=== PATIENT | male | born 1970 | race Caucasian/White ===

== ENCOUNTER 2022-08-07 08:45 | Observation (INO) | payer BC ==
--- NOTE | 2022-08-07 09:35 | RAD REPORT ---
EXAM DESCRIPTION: CT - Abdomen Pelvis Wo Contrast - 08/07/2022 9:13 am CLINICAL HISTORY: Abdominal pain. DISTENTION COMPARISON: No comparisons TECHNIQUE: CT imaging of the abdomen and pelvis was performed without contrast. Solid organ, bowel a nd vascular assessment is limited due to lack of IV and oral contrast. All CT scans are performed using dose optimization technique as appropriate and may include automated exposure control or mA/KV adjustment according to patient size. FINDINGS: Trace pleural fluid is present bilaterally. The liver, spleen, pancreas, adrenal glands and kidneys are within normal limits for a limited non-co ntrast examination. No bowel obstruction, free air, free fluid or abscess. Mild sigmoid diverticulosis coli without diver ticulitis. The appendix is normal. The osseous structures are within normal limits. IMPRESSION: No acute intra-abdominal or pelvic findings. A limited non-contrast examination was performed as detailed.
[2022-08-07] MEDS ORDERED: NITROGLYCERIN 1 GM PKT TD ONE (09:37)
[2022-08-07] MEDS ORDERED: FUROSEMIDE 40 MG/4 ML VIAL ONE (09:37)
[2022-08-07 09:57] LABS: Lymphocytes % 24.5 % (15.3-44.8); MCV 85.4 fL (80-100); RBC Red Blood Cell Count 5.04 M/uL (4.33-5.43)
--- NOTE | 2022-08-07 10:08 | RAD REPORT ---
EXAM DESCRIPTION: RAD - Chest Single View - 08/07/2022 9:18 am CLINICAL HISTORY: DYSPNEA Chest pain. COMPARISON: Head Brain Wo Cont dated 11/22/2020bdomen Pelvis W Contrast dated 08/07/2022; Head C Spi ne Mpr Wo Con dated 08/07/2022No comparisons FINDINGS: Portable technique limits examination quality. Moderate pulmonary edema is suspected. The heart is moderately enlarged. No displaced fractures. IMPRESSION: Moderate CHF versus volume overload.
[2022-08-07 10:17] LABS: Albumin 3.5 g/dL (3.4-5.0); Bilirubin Direct 0.4 mg/dL (0-0.2); Bilirubin Indirect, Calculated 0.7 mg/dL (0.2-0.8); Bilirubin Total 1.1 mg/dL (0.2-1.0); Magnesium 1.9 mg/dL (1.6-2.4); Protein, Total 6.7 g/dL (6.4-8.2); Troponin High Sensitivity 21.4 pg/mL (<58.9)
--- NOTE | 2022-08-07 11:16 | ER ---
Nurse's Notes [facility] Name: Issac Peace Age: 51 yrs Sex: Male : 1970 Arrival Date: 08/07/2022 Time: 08:45 Bed 19 Private MD: Diagnosis: Pulmonary edema;Essential (primary) hypertension Presentation: 08/07 08:55 Chief complaint: Patient states: SOB \T\ ABD distention X 3 days. Last BM this morning. ld1 Denies n/v/d. Coronavirus screen: At this time, the client does not indicate any symptoms associated with coronavirus-19. Ebola Screen: No symptoms or risks identified at this time. Initial Sepsis Screen: Does the patient meet any 2 criteria? No. Patient's initial sepsis screen is negative. Does the patient have a suspected source of infection? No. Patient's initial sepsis screen is negative. Risk Assessment: Do you want to hurt yourself or someone else? Patient reports no desire to harm self or others. Onset of symptoms was August 07, 2022 at 08:56. 08:55 Method Of Arrival: Ambulatory ld1 08:55 Acuity: HILARY 3 ld1 Triage Assessment: 08:56 General: Appears in no apparent distress. comfortable, Behavior is calm, cooperative, ld1 appropriate for age. Pain: Complains of pain in abdomen Pain does not radiate. Pain currently is 4 out of 10 on a pain scale. Quality of pain is described as heavy, throbbing, Pain began 2-3 days ago. Is continuous. EENT: No signs and/or symptoms were reported regarding the EENT system. Neuro: Level of Consciousness is awake, alert, obeys commands, Oriented to person, place, time, situation. Cardiovascular: Capillary refill < 3 seconds Patient's skin is warm and dry. Respiratory: Reports shortness of breath at rest on exertion Airway is patent Respiratory effort is even, unlabored, Onset: The symptoms/episode began/occurred yesterday, the patient has mild shortness of breath. GI: Abdomen is round distended, Reports bloating. : No signs and/or symptoms were reported regarding the genitourinary system. Derm: No signs and/or symptoms reported regarding the dermatologic system. Musculoskeletal: No signs and/or symptoms reported regarding the musculoskeletal system. Historical: - Allergies: 08:56 No Known Allergies; ld1 - PMHx: 08:56 Hypertensive disorder; ld1 - PSHx: 08:56 None; ld1 - Immunization history:: Adult Immunizations up to date, Client reports receiving the 2nd dose of the Covid vaccine. - Social history:: Smoking status: Patient denies any tobacco usage or history of. Patient/guardian denies using alcohol. - Family history:: not pertinent. Screenin:53 [facility] ED Fall Risk Assessment (Adult) History of falling in the last 3 months, db including since admission No falls in past 3 months (0 pts) Confusion or Disorientation No (0 pts) Intoxicated or Sedated No (0 pts) Impaired Gait No (0 pts) Mobility Assist Device Used No (0 pt) Altered Elimination No (0 pt) Score/Fall Risk Level 0 - 2 = Low Risk Oriented to surroundings, Maintained a safe environment. Abuse screen: Denies threats or abuse. Denies injuries from another. Nutritional screening: No deficits noted. Tuberculosis screening: No symptoms or risk factors identified. Assessment: 08:52 Reassessment: Patient appears in no apparent distress at this time. Patient and/or db family updated on plan of care and expected duration. Pain level reassessed. Patient is alert, oriented x 3, equal unlabored respirations, skin warm/dry/pink. patient ambulatory to room. In NAD. General: Appears in no apparent distress. comfortable, Behavior is calm, cooperative. Neuro: Level of Consciousness is awake, alert, obeys commands, Oriented to person, place, time, situation, Speech is normal. 09:14 Reassessment: patient is in CT. db 12:57 Reassessment: patient ambulatory to restroom. db 12:59 Reassessment: Patient appears in no apparent distress at this time. Patient and/or db family updated on plan of care and expected duration. Pain level reassessed. Patient is alert, oriented x 3, equal unlabored respirations, skin warm/dry/pink. Cardiovascular: Rhythm is regular. Respiratory: Airway is patent Respiratory effort is even, unlabored, Respiratory pattern is regular, symmetrical, Breath sounds are clear. 22:06 Reassessment: took patient to room 220 by wheel chair. report was given to RANGEL Silva. ha1 Vital Signs: 08:55 BP 196 / 140; Pulse 96; Resp 20; Temp 98.4(TE); Pulse Ox 99% on R/A; Weight 108.86 kg; ld1 Height 5 ft. 7 in. ; Pain 4/10; 09:00 BP 175 / 119; Pulse 95; Resp 18; Pulse Ox 99% ; db 09:30 BP 146 / 111; Pulse 86; Resp 16; Pulse Ox 98% on R/A; db 10:30 BP 150 / 109; Pulse 83; Resp 18; Pulse Ox 97% on R/A; db 11:30 BP 139 / 100; Pulse 72; Resp 18; Pulse Ox 97% ; db 12:30 BP 145 / 106; Pulse 80; Resp 18; Pulse Ox 98% on R/A; db 13:30 BP 146 / 92; Pulse 72; Resp 18; Pulse Ox 98% ; db 14:00 BP 137 / 99; Pulse 70; Resp 18; Pulse Ox 97% ; db 08:55 Body Mass Index 37.59 (108.86 kg, 170.18 cm) ld1 08:55 Pain Scale: Adult ld1 Vitals: 09:00 Cardiac Rhythm Assessment Sinus rhythm. db ED Course: 08:46 Patient arrived in ED. am2 08:51 Francisca Cunha, RN is Primary Nurse. db 08:52 Wally Cee MD is Attending Physician. rt 08:56 Triage completed. ld1 08:56 Arm band placed on right wrist. ld1 09:15 CT Abd/Pelvis - Without Contrast In Process Unspecified. EDMS 09:19 XRAY Chest (1 view) In Process Unspecified. EDMS 09:43 Inserted saline lock: 20 gauge in right antecubital area, using aseptic technique. db 11:15 Hakeem Castellanos MD is Hospitalizing Provider. rt 12:48 Abdomen Exam Complete In Process Unspecified. EDMS 12:57 Patient has correct armband on for positive identification. Placed in gown. Bed in low db position. Call light in reach. Side rails up X 1. Client placed on continuous cardiac and pulse oximetry monitoring. NIBP monitoring applied. Warm blanket given. 17:03 No provider procedures requiring assistance completed. Patient admitted, IV remains in db place. 20:57 Primary Nurse role handed off by Francisca Cunha, RN rv1 21:03 Ananya Peguero RN is Primary Nurse. ha1 Administered Medications: 09:38 Drug: Nitroglycerin Transdermal Ointment 2 % 1 inches Route: Transdermal; Site: db anterior chest wall; 09:44 Drug: Furosemide IVP 40 mg Route: IVP; Site: right antecubital; db Medication: 17:03 VIS not applicable for this client. db Output: 12:57 Urine: 1800ml (Voided); Total: 1800ml. db Outcome: 11:16 Decision to Hospitalize by Provider. rt 14:30 Admitted to ER Hold. Please see [facility] for further documentation. db 14:30 Condition: stable 14:30 Instructed on the need for admit. 22:07 Patient left the ED. ha1 Signatures: Dispatcher [employer] EDMS Deandra Gomez am2 Parisa Landaverde RN RN ld1 Ananya Peguero RN RN ha1 Francisca Cunha RN RN db Wally Cee MD MD rt Shea Johnson 1
--- NOTE | 2022-08-07 11:16 | EDPHYS ---
Physician Documentation [facility] Name: Issac Peace Age: 51 yrs Sex: Male : 1970 Arrival Date: 08/07/2022 Time: 08:45 Bed 19 Private MD: ED Physician Wally Cee HPI: 08/07 11:32 This 51 yrs old Male presents to ER via Ambulatory with complaints of Shortness Of rt Breath, Abdominal Distention. 11:32 Patient with history of hypertension presents to the ED with shortness of breath, rt orthopnea, BLEVINS for about 3 days now. The patient states that he feels weak and short of breath when he walks. Also reports abdominal distention. He denies chest pain, acute complaints at this time. Symptoms are moderate in severity, no other aggravating or alleviating factors.. Historical: - Allergies: 08:56 No Known Allergies; ld1 - PMHx: 08:56 Hypertensive disorder; ld1 - PSHx: 08:56 None; ld1 - Immunization history:: Adult Immunizations up to date, Client reports receiving the 2nd dose of the Covid vaccine. - Social history:: Smoking status: Patient denies any tobacco usage or history of. Patient/guardian denies using alcohol. - Family history:: not pertinent. ROS: 11:32 Constitutional: Negative for fever, chills, and weight loss, Cardiovascular: Negative rt for chest pain, palpitations, and edema, MS/Extremity: Negative for injury and deformity, Skin: Negative for injury, rash, and discoloration, Neuro: Negative for headache, weakness, numbness, tingling, and seizure, Psych: Negative for depression, anxiety, suicide ideation, homicidal ideation, and hallucinations. 11:32 Respiratory: Positive for dyspnea on exertion, shortness of breath. Exam: 11:32 Constitutional: This is a well developed, well nourished patient who is awake, alert, rt and in no acute distress. Head/Face: Normocephalic, atraumatic. Chest/axilla: Normal chest wall appearance and motion. Nontender with no deformity. No lesions are appreciated. Cardiovascular: Regular rate and rhythm with a normal S1 and S2. No gallops, murmurs, or rubs. Normal PMI, no JVD. No pulse deficits. Skin: Warm, dry with normal turgor. Normal color with no rashes, no lesions, and no evidence of cellulitis. MS/ Extremity: Pulses equal, no cyanosis. Neurovascular intact. Full, normal range of motion. Neuro: Awake and alert, GCS 15, oriented to person, place, time, and situation. Cranial nerves II-XII grossly intact. Motor strength 5/5 in all extremities. Sensory grossly intact. Cerebellar exam normal. Normal gait. Psych: Awake, alert, with orientation to person, place and time. Behavior, mood, and affect are within normal limits. 11:32 ECG was reviewed by the Attending Physician. 11:32 Respiratory: Bibasilar crackles. 11:32 Abdomen/GI: Mild abdominal distention with no tenderness, guarding, rebound. Vital Signs: 08:55 BP 196 / 140; Pulse 96; Resp 20; Temp 98.4(TE); Pulse Ox 99% on R/A; Weight 108.86 kg; ld1 Height 5 ft. 7 in. ; Pain 4/10; 09:00 BP 175 / 119; Pulse 95; Resp 18; Pulse Ox 99% ; db 09:30 BP 146 / 111; Pulse 86; Resp 16; Pulse Ox 98% on R/A; db 10:30 BP 150 / 109; Pulse 83; Resp 18; Pulse Ox 97% on R/A; db 11:30 BP 139 / 100; Pulse 72; Resp 18; Pulse Ox 97% ; db 12:30 BP 145 / 106; Pulse 80; Resp 18; Pulse Ox 98% on R/A; db 13:30 BP 146 / 92; Pulse 72; Resp 18; Pulse Ox 98% ; db 14:00 BP 137 / 99; Pulse 70; Resp 18; Pulse Ox 97% ; db 08:55 Body Mass Index 37.59 (108.86 kg, 170.18 cm) ld1 08:55 Pain Scale: Adult ld1 MDM: 08:53 Patient medically screened. rt 11:32 Differential diagnosis: CHF exacerbation, Chronic Obstructive Pulmonary Disease rt Myocardial Infarction pneumonia, Pneumothorax pulmonary edema, Pulmonary Embolism. Data reviewed: vital signs, nurses notes, lab test result(s), EKG, radiologic studies. Consideration of Admission/Observation Patient was admitted/placed on observation. Management of patient was discussed with the following: Hospitalist: Agrees to admit. Independent interpretation of the following test(s) in the Emergency Department X-Ray: My interpretation is Pulmonary edema with cardiomegaly seen on interpretation of the x-ray images. Test considered but Not performed: CT: Low suspicion for PE, CT angiogram not indicated. Counseling: I had a detailed discussion with the patient and/or guardian regarding: the historical points, exam findings, and any diagnostic results supporting the discharge/admit diagnosis, lab results, radiology results, the need for further work-up and treatment in the hospital. 08/07 09:04 Order name: Basic Metabolic Panel; Complete Time: 10:18 rt 08/07 09:04 Order name: CBC with Diff; Complete Time: 10:16 rt 08/07 09:04 Order name: LFT's; Complete Time: 10:18 rt 08/07 09:04 Order name: Magnesium; Complete Time: 10:18 rt 08/07 09:04 Order name: NT PRO-BNP; Complete Time: 10:18 rt 08/07 09:04 Order name: Troponin HS; Complete Time: 10:18 rt 08/07 12:04 Order name: CBC with Automated Diff EDMS 08/07 12:04 Order name: Comprehensive Metabolic Panel EDMS 08/07 12:08 Order name: Lipid Profile EDMS 08/07 14:15 Order name: CBC Smear Scan EDMS 08/07 09:04 Order name: XRAY Chest (1 view); Complete Time: 10:16 rt 08/07 09:04 Order name: CT Abd/Pelvis - Without Contrast; Complete Time: 10:16 rt 08/07 12:06 Order name: Echo with Doppler EDMS 08/07 12:10 Order name: Abdomen Exam Complete EDMS 08/07 09:04 Order name: EKG; Complete Time: 09:05 rt 08/07 12:04 Order name: CONS Physician Consult EDMS 08/07 12:04 Order name: Heart Healthy EDMS 08/07 09:04 Order name: Cardiac monitoring; Complete Time: 09:35 rt 08/07 09:04 Order name: EKG - Nurse/Tech; Complete Time: 09:35 rt 08/07 09:04 Order name: IV Saline Lock; Complete Time: 09:35 rt 08/07 09:04 Order name: Labs collected and sent; Complete Time: 09:54 rt 08/07 09:04 Order name: O2 Per Protocol; Complete Time: 09:35 rt 08/07 09:04 Order name: O2 Sat Monitoring; Complete Time: :35 rt EC:32 Rate is 98 beats/min. Rhythm is regular, Normal Sinus Rhythm with No ectopy. Left axis rt deviation noted. WV interval is normal. QRS interval is normal. QT interval is normal. No Q waves. Clinical impression: LVH present with nonspecific T wave changes. Administered Medications: 09:38 Drug: Nitroglycerin Transdermal Ointment 2 % 1 inches Route: Transdermal; Site: db anterior chest wall; 09:44 Drug: Furosemide IVP 40 mg Route: IVP; Site: right antecubital; db Disposition Summary: 08/07/22 11:16 Hospitalization Ordered Hospitalization Status: Observation rt Provider: Hakeem Castellanos rt Condition: Stable rt Problem: new rt Symptoms: have improved rt Bed/Room Type: Standard rt Location: Telemetry/MedSurg (observation)(08/07/22 20:18) cg Room Assignment: 220(08/07/22 20:18) cg Diagnosis - Pulmonary edema rt - Essential (primary) hypertension rt Forms: - Medication Reconciliation Form rt - SBAR form rt Signatures: Dispatcher [employer] EDMarisabel Parrish RN RN ss Garcia, Cindy, RN RN cg Parisa Landaverde RN RN ld1 Francisca Cunha RN RN db Wally Cee MD MD rt Corrections: (The following items were deleted from the chart) 19:05 11:16 Telemetry/MedSurg (observation) rt ss 19:05 11:16 rt ss 20:18 19:05 [facility] ER HOLD ss cg 20:18 19:05 ERHOLD- ss cg
--- NOTE | 2022-08-07 11:50 | P.HP ---
Certification for Inpatient Patient admitted to: Observation With expected LOS: <2 Midnights Patient will require the following post-hospital care: None Practitioner: I am a practitioner with admitting privileges, knowledge of patient current condition, hospital course, and medical plan of care. Services: Services provided to patient in accordance with Admission requirements found in Title 42 Section 412.3 of the Code of Federal Regulations Patient History Date of Service: 08/07/22 Reason for admission: Shortness of breath abdominal distention History of Present Illness: Patient is 51 years of age admitted to the hospital complaining of belly feeling tight shortness of breath the past couple of days denies any lower extremity edema history of hypertension former smoker quit 2-1/2 years ago no prior history of coronary artery disease no pulmonary disorders denies any fever or chills - Past Medical/Surgical History -: Hypertension Past Surgical History: Reviewed- Non-Contributory - Social History Smoking Status: Former smoker Review of Systems Respiratory: Shortness of Breath Physical Examination - Vital Signs Temperature: 98.4 F Blood Pressure: 196/140 Pulse: 96 Respirations: 20 Pulse Ox (%): 99 - Physical Exam General: Alert, In no apparent distress, Cachectic Respiratory: Clear to auscultation bilaterally Cardiovascular: No edema, Regular rate/rhythm, Normal S1 S2 Gastrointestinal: Normal bowel sounds, Soft and benign Musculoskeletal: No clubbing, No swelling Neurological: Normal gait, Normal speech, Normal strength at 5/5 x4 extr Lymphatics: No axilla or inguinal lymphadenopathy - Studies Laboratory Data (last 24 hrs) 08/07/22 09:43: WBC 8.00, Hgb 14.4, Hct 43.0, Plt Count 163 08/07/22 09:43: Sodium 138, Potassium 4.0, BUN 14, Creatinine 1.05, Glucose 129 H, Magnesium 1.9, Total Bilirubin 1.1 H, AST 40 H, ALT 125 H, Alkaline Phosphatase 103 Assessment and Plan - Problems (Diagnosis) (1) CHF (congestive heart failure) Current Visit: Yes Status: Acute Plan: Patient is 51 years of age with a history of uncontrolled hypertension he does not have a primary care physician currently takes carvedilol former smoker heavy smoker quit 2-1/2 years ago admitted with acute shortness of breath for the past 2 to 3 days x-ray shows cardiomegaly patient's BNP is elevated FTs are also elevated to the hospital controlled blood pressure diuresis echocardiogram Qualifiers: Heart failure chronicity: unspecified (2) Abnormal LFTs Current Visit: Yes Status: Acute Plan: I suspect is from his liver congestion secondary to CHF continue to monitor have fatty liver - Advance Directives Does patient have a Living Will: No Does patient have a Durable POA for Healthcare: No
[2022-08-07] MEDS ORDERED: HYDRALAZINE HCL 20 MG/ML VIAL IV PRN (12:06)
[2022-08-07 13:35] LABS: Absolute Lymphocytes (CBC) 2.3 K/uL (0.7-4.9); Hematocrit 45.6 % (39.6-49.0); Lymphocytes % 25.4 % (15.3-44.8); MCV 85.6 fL (80-100); MPV 11.2 fL (7.6-11.3); RBC Red Blood Cell Count 5.33 M/uL (4.33-5.43)
[2022-08-07 13:54] LABS: Albumin 4.1 g/dL (3.4-5.0); Bilirubin Total 1.6 mg/dL (0.2-1.0); Potassium 3.6 mEq/L (3.5-5.1); Protein, Total 7.6 g/dL (6.4-8.2)
[2022-08-07] MEDS: hydroCHLOROthiazide 12.5 MG CAP PO SCH (14:00)
[2022-08-07] MEDS: lisinopriL 10 MG TAB PO SCH ×2 (14:00)
[2022-08-07 14:15] LABS: Blood Morphology Comment NOT SEEN (NOT SEEN); Platelet Estimate ADEQ; Platelets, Giant PRESENT; White Blood Cell Scan OK (OK)
--- NOTE | 2022-08-07 14:23 | RAD REPORT ---
EXAM DESCRIPTION: US - Abdomen Exam Complete - 08/07/2022 1:18 pm CLINICAL HISTORY: Abnormal LFTs abdominal distention COMPARISON: August 07, 2022 CT FINDINGS: The liver has an increased echotexture. Liver is mildly enlarged A gallstone is not seen. The gallbladder wall is not thickened. The biliary tree is normal caliber. The pancreas is normal in size and echotexture The right kidney measures 9 centimeters with a normal echotexture. The left kidney measures 11 centimeters with a normal echotexture. The spleen measures 12 centimeters. Abdominal aorta/IVC do not demonstrate a significant abnormality IMPRESSION: Mild hepatomegaly Mild increased hepatic echotexture may indicate mild fatty infiltration
[2022-08-07 14:54] VITALS: BMI 37.5
[2022-08-07] MEDS ORDERED: lisinopriL 10 MG TAB ONE (15:12)
[2022-08-07] MEDS: FUROSEMIDE 20 MG/ 2ML VIAL IV SCH (22:18)
--- NOTE | 2022-08-08 07:08 | P.PN ---
Date of Service: 08/08/22 Subjective: feeling better slight shortness of breath on exertion swelling improved still feels swollen /"big" in abdomen, but no longer feels like "basketball" ROS: 10 point ROS as noted above, otherwise negative Physical Exam: GEN: Alert, oriented, NAD HEENT: Normal conjunctiva, sclera anicteric CV: Regular rate and rhythm, trace b/l pedal edema Pulm: Nonlabored respirations on room air, diminished bilaterally at bases ABD: Soft, nontender, nondistended Neuro: Normal speech, normal affect vitals reviewed Problem List: Acute on chronic Congestive Heart Failure Abnormal LFTs Hypertension Acute on chronic Congestive Heart Failure pt states he was told he might have [id number] ago at [facility] after echo, told it squeezes weak, sent home on lifevest for 6 months with plans for defibrillator, however insurance denied, and then he states he was told he didn't need one only 1 echo done in hospital, never had repeated also reports being placed on eliquis; he is unsure why. denies blood clot his toryj above story from patient is highly concerning for prior EF <20-25% was previously on lasix, but taken off when had LUPILLO as result of "bad intestine infection" CXR (08/07): Moderate CHF versus volume overload Cardiology consulted recommended increasing coreg, lisinopril DC HCTZ outpatient vs inpatient echocardiogram, stress test continue lasix Abnormal LFTs Abdominal u/s (08/07):Mild hepatomegaly; +Mild increased hepatic echotexture may indicate mild fatty infiltration CT abdomen (08/07): No acute intra-abdominal or pelvic findings LFTs worse Hypertension, uncontrolled continue home medication Code: Full Dispo: Home tomorrow, pending further symptomatic improvement, and LFT improvement
[2022-08-08] MEDS ORDERED: carvediloL 6.25 MG TAB PO SCH (09:00)
[2022-08-08] MEDS: hydroCHLOROthiazide 12.5 MG CAP PO SCH (09:41)
[2022-08-08] MEDS: lisinopriL 10 MG TAB PO SCH (09:42)
[2022-08-08] MEDS: FUROSEMIDE 20 MG/ 2ML VIAL IV SCH ×2 (09:42→20:29)
--- NOTE | 2022-08-08 11:47 | CON ---
Date of Consultation: 08/08/2022 Reason For Consultation: New onset congestive heart failure. History Of Present Illness: Mr. Peace is only 51, just moved to from [place] for work-r elated purposes. He has a history of hypertension, distant family history of heart disease and diabe shey. No dyslipidemia. Does not smoke. Has been having shortness of breath and fatigue for the last 2-3 days, which is new for him. He came in and was found to be in moderate congestive heart failure by chest x-ray with BNP of 1763. He denied chest pain, nausea, vomiting, diaphoresis. Has had some PND and orthopnea, but no pedal edema. Denied any fever or chills. Allergies: NONE. Medications: At home include Coreg and lisinopril. Review of Systems: Negative. Social History: Negative. Family History: Negative. Physical Examination: Vital Signs: Stable, afebrile. HEENT: Negative. Neck: Supple with no bruit. Chest: Revealed clear lungs bilaterally. Cardiac: Revealed a regular rhythm and rate. No murmurs, gallops, or rubs. Abdomen: Benign. Extremities: Revealed trace edema. Diagnostic Data: As stated earlier. Impression And Plan: Acute congestive heart failure, hopefully just diastolic. I think we need to i ncrease his Coreg dose, we need to increase his lisinopril dose. We need to continue Lasix, disconti nue hydrochlorothiazide. I will call him on Wednesday from my office and set him up for an echocardiogr am and outpatient Lexiscan if he goes home. If he stays home, we will consider to do those as an inp atient, but I will see the need to do that. I will discuss the case further with Dr. Ley. LISBET/LUC Voice ID: [id number] Report ID: [id number]
[2022-08-08] MEDS: carvediloL 12.5 MG TAB PO SCH (17:02)
[2022-08-09 04:48] LABS: Albumin 3.8 g/dL (3.4-5.0); Bilirubin Total 0.9 mg/dL (0.2-1.0); Magnesium 2.3 mg/dL (1.6-2.4); Potassium 3.4 mEq/L (3.5-5.1); Protein, Total 7.3 g/dL (6.4-8.2)
[2022-08-09 05:27] VITALS: TEMP 96.8
[2022-08-09] MEDS ORDERED: POTASSIUM CL SA 10 MEQ TAB PO ONE (06:29)
--- NOTE | 2022-08-09 07:04 | P.DS ---
Admission Date: 08/07/22 Discharge Date: 08/09/22 Disposition: ROUTINE DISCHARGE Discharge Condition: GOOD Reason for Admission: CHF exacerbation Consultations: Cardiology - Dr. Max Brief History of Present Illness: 51yo M, PMH: Hypertension Patient was admitted to the hospital complaining of belly feeling tight, with shortness of breath the past couple of days, and orthopnea. Patient denies any lower extremity edema. Patient is a former smoker quit 2-1/2 years ago. Hospital Course: Problem List: Acute on chronic Congestive Heart Failure, unknown type; suspect systolic h/o CHF, patient describes systolic CHF Abnormal LFTs Hypertension Patient presented to ED with shortness of breath, abdominal distention, and high blood pressure for a few days. Ran out of one of his anti-hypertensives ~1-2 weeks ago. He was found to have pulmonary edema with trace bilateral pleural effusions, elevated BNP and LFTs, all most consistent with an acute CHF exacerbation. He was treated with IV lasix and increase of his home anti-hypertensives. Cardiology, Dr. Max, was consulted. Patient's symptoms significantly improved and recommended to follow up in the office this week for further cardiac evaluation with echocardiogram and outpaitient lexiscan. Upon further review after admission, patient recalled that he was hospitalized ~3 years ago at [facility] due to similar symptoms. He did not recall full details, but stated he was told his heart was squeezing very weak and "tired". He was recommended to undergo defibrillator placement, discharged on diuretics and wore a LifeVest for 6 months. He did not have any further cardiac evaluation, no repeat echocardiogram. He was eventually told he did not need to wear the LifeVest anymore. His LFTs slightly increased overnight after admission, he was further observed and treated with IV Lasix, with continued improvement of his symptoms and LFTs. His renal function remained stable. He was deemed stable for discharge home. Medications: New: Lasix 20 mg daily Change: Carvedilol increased from 6.25 to 12.5 mg twice daily Continue home lisinopril dose (10mg BID), refill was sent. His blood pressures remained 120s/70s on this regimen Follow-up: PCP within 1 week Cardiology this coming week for outpatient echocardiogram and Lexiscan (stress test) Physical Exam: GEN: Alert, oriented, NAD HEENT: Normal conjunctiva, sclera anicteric CV: Regular rate and rhythm, no edema Pulm: Nonlabored respirations on room air, clear bilaterally ABD: Soft, nontender, nondistended Neuro: Normal speech, normal affect Vital Signs/Physical Exam: Temp Pulse Resp BP Pulse Ox 96.8 F 66 16 111/67 96 08/09/22 04:00 08/09/22 04:00 08/09/22 04:00 08/09/22 04:00 08/09/22 04:00 Laboratory Data at Discharge: WBC 9.20 thou/uL (4.3-10.9) 08/07/22 13:05 Hgb 15.2 g/dL (13.6-17.9) 08/07/22 13:05 Hct 45.6 % (39.6-49.0) 08/07/22 13:05 Plt Count 193 thou/uL (152-406) 08/07/22 13:05 Sodium 136 mEq/L (136-145) 08/09/22 04:10 Potassium 3.4 mEq/L (3.5-5.1) L 08/09/22 04:10 BUN 20 mg/dL (7-18) H 08/09/22 04:10 Creatinine 1.17 mg/dL (0.70-1.30) 08/09/22 04:10 Glucose 119 mg/dL (74-106) H 08/09/22 04:10 Magnesium 2.3 mg/dL (1.6-2.4) 08/09/22 04:10 Total Bilirubin 0.9 mg/dL (0.2-1.0) 08/09/22 04:10 AST 45 U/L (15-37) H 08/09/22 04:10 ALT 116 U/L (16-61) H 08/09/22 04:10 Alkaline Phosphatase 110 U/L (45-117) 08/09/22 04:10 Triglycerides 89 mg/dL (<150) 08/08/22 07:10 Cholesterol 148 mg/dL (<200) 08/08/22 07:10 HDL Cholesterol 33 mg/dL (40-60) L 08/08/22 07:10 Cholesterol/HDL Ratio 4.48 08/08/22 07:10 Home Medications: Furosemide [Lasix] 20 mg PO DAILY 30 Days #30 tab 08/09/22 Lisinopril [Zestril] 10 mg PO BID 30 Days #60 tab 08/09/22 carvediloL [Coreg*] 12.5 mg PO BIDWM 30 Days #60 tab 08/09/22 New Medications: carvediloL [Coreg*] 12.5 mg PO BIDWM 30 Days #60 tab Furosemide [Lasix] 20 mg PO DAILY 30 Days #30 tab Lisinopril [Zestril] 10 mg PO BID 30 Days #60 tab Physician Discharge Instructions: Patient presented to ED with shortness of breath, abdominal distention, and high blood pressure for a few days. Ran out of one of his anti-hypertensives ~1-2 weeks ago. He was found to have pulmonary edema with trace bilateral pleural effusions, elevated BNP and LFTs, all most consistent with an acute CHF exacerbation. He was treated with IV lasix and increase of his home anti-hypertensives. Cardiology, Dr. Max, was consulted. Patient's symptoms significantly improved and recommended to follow up in the office this week for further cardiac evaluation with echocardiogram and outpaitient lexiscan. Upon further review after admission, patient recalled that he was hospitalized ~3 years ago at [facility] due to similar symptoms. He did not recall full details, but stated he was told his heart was squeezing very weak and "tired". He was recommended to undergo defibrillator placement, discharged on diuretics and wore a LifeVest for 6 months. He did not have any further cardiac evaluation, no repeat echocardiogram. He was eventually told he did not need to wear the LifeVest anymore. His LFTs slightly increased overnight after admission, he was further observed and treated with IV Lasix, with continued improvement of his symptoms and LFTs. His renal function remained stable. He was deemed stable for discharge home. Medications: New: Lasix 20 mg daily Change: Carvedilol increased from 6.25 to 12.5 mg twice daily Continue home lisinopril dose (10mg BID), refill was sent. His blood pressures remained 120s/70s on this regimen Follow-up: PCP within 1 week Cardiology this coming week for outpatient echocardiogram and Lexiscan (stress test) Followup: Parmjit Max MD [ACTIVE - CAN ADMIT] - NONE,NONE [Primary Care Provider] - Time spent managing pt's care (in minutes): 45
[2022-08-09 08:18] VITALS: BP 137/84
[2022-08-09] MEDS: carvediloL 12.5 MG TAB PO SCH (08:18)
[2022-08-09] MEDS: lisinopriL 10 MG TAB PO SCH (08:18)
[2022-08-09] MEDS: FUROSEMIDE 20 MG/ 2ML VIAL IV SCH (08:19)
[2022-08-09 08:29] VITALS: O2SAT 98
--- NOTE | 2022-08-09 10:17 | PN ---
Patient came in with new onset congestive heart failure, is doing much better. Apparently, he gave Laury Ley a more different story yesterday that he gave me on our own initial interview. At one point years ago, he was told that he had a weak heart and that he needed defibrillator and pacemaker, but never followed up. He does have an echo pending, and he should have an MPI as an outpatient. He is doing well enough. I think he can go home today with his present regimen. I will make arrangements for him to have an echocardiogram, MPI, and we will decide on further treatment according to his ejec tion fraction and his stress test. LISBET/LUC Voice ID: [id number] Report ID: [id number]
--- NOTE | 2022-08-10 12:12 | EKG ---
Test Date: 2022-08-07 Test Time: 08:58:37 Ground Source Heat Pump Technician: LISA MEASUREMENT RESULTS: Intervals: Rate: 98 DE: 190 QRSD: 110 QT: 382 QTc: 487 [place]: P: 73 DE: 190 QRS: -56 T: 76 INTERPRETIVE STATEMENTS: Normal sinus rhythm Possible Left atrial enlargement Left axis deviation Prolonged QT Abnormal ECG No previous ECG available for comparison Electronically Signed On 08-10-22 12:01:47 CDT by Parmjit Max
== END 2022-08-09 08:48 | disposition home or self-care (01) ==
LOC: ER 08:45 → ERHOLD 14:10 → 2ND 20:31
PROVIDERS: ADMIT Hospitalist; ATTEND Hospitalist
DX: I50.9 Heart failure, unspecified (principal); I10 Essential (primary) hypertension; E11.9 Type 2 diabetes mellitus without complications; R79.89 Other specified abnormal findings of blood chemistry; R94.5 Abnormal results of liver function studies; K76.0 Fatty (change of) liver, not elsewhere classified; Z87.891 Personal history of nicotine dependence
CPT/HCPCS: 93005; 85025 ×2; 80048; 36415 ×2; 83735 ×2; 80061; 80076; 84484; 80053 ×2; 83880; 74176; 71045; 76700; 96374; 99285; J1940 ×5; G0378 ×5

== ENCOUNTER 2022-10-22 10:25 | Day surgery (SDC) | payer BC ==
[2022-10-20 10:34] LABS: Absolute Lymphocytes (CBC) 2.4 K/uL (0.7-4.9); Hematocrit 45.2 % (39.6-49.0); Lymphocytes % 32.9 % (15.3-44.8); MCV 84.7 fL (80-100); MPV 10.7 fL (7.6-11.3); Platelets 188 thou/uL (152-406); RBC Red Blood Cell Count 5.34 M/uL (4.33-5.43)
[2022-10-20 10:40] LABS: Protime INR 0.9
[2022-10-20 11:12] LABS: Potassium 4.3 mEq/L (3.5-5.1)
--- NOTE | 2022-10-20 15:50 | EKG ---
Test Date: 2022-10-20 Test Time: 10:19:10 Station Agent: ALICIA MEASUREMENT RESULTS: Intervals: Rate: 72 CA: 190 QRSD: 112 QT: 408 QTc: 446 Sewell: P: 64 CA: 190 QRS: -54 T: 220 INTERPRETIVE STATEMENTS: Normal sinus rhythm Left axis deviation ST & T wave abnormality, consider inferolateral ischemia Abnormal ECG Compared to ECG 08/07/2022 08:58:37 ST (T wave) deviation now present Possible ischemia now present Prolonged QT interval no longer present Electronically Signed On 10-20-22 15:49:59 CDT by Mahendra Herrmann
[2022-10-22] MEDS ORDERED: FENTANYL CITR 100 MCG/2 ML ONE (10:45)
[2022-10-22] MEDS ORDERED: VERAPAMIL HCL 10 MG/4 ML VIAL IV ONE (10:45)
[2022-10-22] MEDS ORDERED: MIDAZOLAM HCL 2 MG/2 ML INJ ONE (10:45)
[2022-10-22] MEDS ORDERED: HEPARIN 5000 UNIT/ML 1 ML VIAL ONE (10:45)
[2022-10-22] MEDS ORDERED: HEPA 1000U/500MLS 2,000 UNIT/1,000 ML BAG IV ONE (10:45)
[2022-10-22] MEDS ORDERED: ATROPINE SULF 1 MG/10 ML SYR IV ONE (10:46)
[2022-10-22] MEDS ORDERED: CLOPIDOGREL 75 MG TABLET ONE (10:46)
[2022-10-22] MEDS ORDERED: TICAGRELOR 90 MG TABLET PO ONE (10:46)
[2022-10-22] MEDS ORDERED: LIDOCAINE 1% 20 ML MDV ONE (10:46)
[2022-10-22] MEDS ORDERED: ASPIRIN 325 MG TAB ONE (10:46)
[2022-10-22] MEDS ORDERED: HEPARIN 10,000 UNIT/10 ML VIAL IV ONE (10:46)
[2022-10-22] MEDS ORDERED: NA CHLORIDE 0.9% 500 ML ONE (10:49)
[2022-10-22 14:06] VITALS: BP 137/64; O2SAT 98
--- NOTE | 2022-10-22 14:36 | OP ---
Date of Procedure: 10/22/2022 Surgeon: IVANNA SIBLEY Procedures Performed: 1.Selective coronary angiogram. 2.Left heart catheterization. Indication: Abnormal stress test with chest pain. Access: Right radial artery 6-Mosotho closed with TR band. Complications: None. Bleeding: Less than 20 mL. Description Of Procedure: After risks, benefits, alternatives were explained, the patient agreed to procedure and signed informed consent. The patient was brought into cardiac catheterization laborato , prepped and draped in the usual sterile fashion. Then, I accessed right radial artery using pedi atric micropuncture kit, placed 6-Mosotho Slender sheath, and took 5-Mosotho [place] 4.0 catheter into th e aortic root over a J-wire, engaged the left main, took standard views, and then the RCA and took st andard views, and the catheter was pushed over the wire into the LV, measured the LVEDP and pullback did not record any gradient. Then, I removed the catheter and sheath, placed TR band with good hemos tasis. Findings: 1.Left main; large and normal. 2.LAD; large and normal, normal diagonal branches. 3.Left circumflex; moderate-sized vessel, nondominant and normal. 4.RCA; large with luminal irregularities and it is dominant. 5.LVEDP is borderline between 10 and 13 mmHg. Conclusion: 1.Normal coronary arteries. 2.Borderline LVEDP. Plan: Medical management. /MODL Voice ID: [id number] Report ID: [id number]
== END 2022-10-22 14:25 | disposition home or self-care (01) ==
LOC: PRE 10:25
PROVIDERS: ATTEND Internal Medicine
DX: R94.39 Abnormal result of other cardiovascular function study (principal); R07.9 Chest pain, unspecified; I11.0 Hypertensive heart disease with heart failure; I50.21 Acute systolic (congestive) heart failure; Z87.891 Personal history of nicotine dependence; Z79.899 Other long term (current) drug therapy
CPT/HCPCS: 93005; 85025; 80048; 36415; 85610; 85730; 93458; 76937; C1893; Q9966; J1644; J2001; J2250; J3010; J7040; J0461

== ENCOUNTER 2024-10-11 08:30 | Inpatient (IN) | payer BC ==
--- OUTSIDE RECORDS SUMMARY | 2024-10-11 08:33 | XMS REPORT | Continuity of Care Document ---
Author Name Unknown Address [address] [place] [address] [facility] Address [address] [place] [address] Care Team Providers Care Home Care Chaplain Name Role Phone HAROON LAZO Attending Clinician Unavailable ALEXYS THACKER Attending Clinician Unavailable HAROON LAZO Admitting Clinician Unavailable Encounters Start Date/Time End Date/Time Encounter Type Admission Type Attending Clinicians Care Facility Care Department Encounter ID Source 2019-07-06 17:35:00 2019-07-11 17:38:00 Inpatient E HAROON LAZO [facility] [id number] [facility] 2019-03-31 13:53:00 2019-04-03 16:47:00 Inpatient E ALEXYS THACKER [facility] [id number] [facility]
[2024-10-11] MEDS ORDERED: NITROGLYCERIN/D5W 50 MG/250 ML BTL IV ONE (08:43)
[2024-10-11 09:03] LABS: Absolute Lymphocytes (CBC) 0.8 K/uL (0.7-4.9); Hematocrit 44.2 % (39.6-49.0); Hemoglobin 14.6 g/dL (13.6-17.9); MCH 28.1 pg (27.0-35.0); MCHC 33.0 g/dL (32.0-36.0); MCV 85.2 fL (80-100); MPV 11.8 fL (7.6-11.3); Nucleated RBC Absolute Count 0.0 (0-0); Nucleated Red Blood Cells % 0.1 % (0-0); RBC Red Blood Cell Count 5.18 M/uL (4.33-5.43); White Blood Count 9.00 thou/uL (4.3-10.9)
[2024-10-11 09:11] LABS: PT Prothrombin Time 12.5 SECONDS (10-13.0); Protime INR 1.11
[2024-10-11 09:14] LABS: Arterial Blood Carboxyhemoglob 1.7 % (0.0-1.5); Blood Gas Inspired Oxygen 100.0 %; Blood Gas Oxyhemoglobin 97.7 % (94.0-97.0); Blood O2 Saturation 99.8 % (92.0-98.5)
--- NOTE | 2024-10-11 09:14 | RAD REPORT ---
EXAMINATION: ONE VIEW CHEST XR CLINICAL INDICATION: DYSPNEA TECHNIQUE: Frontal chest projection is submitted. Examination is limited by patient positioning and t echnique. COMPARISON: 08/07/2022 FINDINGS: There is extensive moderate to significant bilateral pulmonary opacities greatest in the right lower lung. This appears worse than on the prior radiograph. The heart is moderately enlarged in size. No displaced fractures identified. IMPRESSION: Moderate to significant CHF versus volume overload pattern suspected.
[2024-10-11 09:25] LABS: ALT/SGPT 173.0 U/L (16-61); AST/SGOT 101.0 U/L (15-37); Albumin 3.6 g/dL (3.4-5.0); Albumin/Globulin Ratio 1.1 (1.1-1.8); Alkaline Phosphatase 108.0 U/L (45-117); Anion Gap 8.8 mEq/L (5.0-15.0); BUN Blood Urea Nitrogen 10.0 mg/dL (7-18); Bilirubin Indirect, Calculated 0.5 mg/dL (0.2-0.8); Globulin 3.4 g/dL (2.3-3.5); Glucose Level 290.0 mg/dL (74-106); Magnesium 1.9 mg/dL (1.6-2.4); NT PRO-BNP 1638.0 pg/mL (<125); Potassium 4.8 mEq/L (3.5-5.1); Troponin High Sensitivity 8.9 pg/mL (<58.9)
--- NOTE | 2024-10-11 10:28 | EDPHYS ---
Physician Documentation [facility] Name: Issac Peace Age: 54 yrs Sex: Male : 1970 Arrival Date: 10/11/2024 Time: 08:30 Bed 25 Private MD: ED Physician Bryan Landaverde HPI: 10/11 10:37 This 54 yrs old Male presents to ER via EMS with complaints of Breathing Difficulty. ms3 10:37 54-year-old male with past medical history of hypertension presents to the emergency ms3 department via [facility] for respiratory distress that began at 5 AM. EMS notes on their arrival patient's oxygen saturation was 80%. Patient notes he is had substernal chest pain and shortness of breath that began at 5 AM. He denies any alleviating or inciting factors.. Historical: - Allergies: 08:38 No Known Allergies; ph - PMHx: 08:38 Hypertensive disorder; ph - Immunization history:: Adult Immunizations unknown. - Infectious Disease History:: Denies. - Social history:: Smoking status: Patient denies any tobacco usage or history of. ROS: 10:37 Constitutional: Negative for fever, and chills. ms3 10:37 Abdomen/GI: Negative for abdominal pain, nausea, vomiting, diarrhea, and constipation, MS/Extremity: Negative for injury and deformity, Skin: Negative for injury, rash, and discoloration, 10:37 Cardiovascular: Positive for chest pain, 10:37 Respiratory: Positive for shortness of breath, Exam: 09:07 ECG was reviewed by the Attending Physician. ms3 10:37 Constitutional: This is a well developed, well nourished patient who is awake, alert, ms3 and in no acute distress. Abdomen/GI: Soft, non-tender, with normal bowel sounds. No distension or tympany. No guarding or rebound. No evidence of tenderness throughout. Skin: Warm, dry with normal turgor. Normal color with no rashes, no lesions, and no evidence of cellulitis. MS/ Extremity: Pulses equal, no cyanosis. Neurovascular intact. Full, normal range of motion. 10:37 Cardiovascular: Rate: tachycardic, Rhythm: regular, Pulses: no pulse deficits are appreciated, Heart sounds: normal, normal S1and S2, Edema: is not appreciated, 10:37 Respiratory: moderate respiratory distress is noted, Respirations: labored breathing, that is moderate, accessory muscle usage, that is moderate, tachypnea, that is moderate, Breath sounds: rales, that are severe, are heard diffusely, Vital Signs: 08:35 BP 193 / 106; Pulse 105; Resp 40; Temp 97.6(A); Pulse Ox 99% on BiPAP; Weight 114.76 kg;ph 09:07 BP 164 / 93; Pulse 96; Resp 32; Pulse Ox 98% on 100 lpm BiPAP; ph 09:30 BP 142 / 79; Pulse 92; Resp 26; Pulse Ox 97% on 100 lpm BiPAP; ph 10:00 BP 121 / 69; Pulse 85; Resp 26; Pulse Ox 97% on 100 lpm BiPAP; ph 10:30 BP 125 / 74; Pulse 76; Resp 22; Pulse Ox 98% on 100 lpm BiPAP; ph 10:49 BP 112 / 59; Pulse 74; Resp 20; Pulse Ox 100% on 100 lpm BiPAP; ph 11:30 BP 105 / 65; Pulse 75; Resp 22; Pulse Ox 100% on BiPAP; ph 12:30 BP 96 / 62; Pulse 66; Resp 18; Pulse Ox 94% on BiPAP; ph 12:53 BP 96 / 62; Pulse 64; Resp 20; Pulse Ox 94% on 100 lpm BiPAP; ph 15:07 BP 113 / 75; Pulse 73; Resp 18; Pulse Ox 98% on 80 lpm BiPAP; ph 12:30 PT ASLEEP ph 12:53 pt asleep ph MDM: 08:34 Medical Screening Exam initiated ms3 10:37 Differential diagnosis: Anemia CHF exacerbation, pulmonary edema. Data reviewed: vital ms3 signs, nurses notes, lab test result(s), EKG, radiologic studies, and as a result, I will admit patient. Consideration of Admission/Observation Patient was admitted/placed on observation. Management of patient was discussed with the following: Hospitalist: Dr Awan. I considered the following discharge prescriptions or medication management in the emergency department Medications were administered in the Emergency Department. See MAR. Independent interpretation of the following test(s) in the Emergency Department EKG: See my EKG interpretation above X-Ray: My interpretation is Chest x-ray image reviewed by me reveals bilateral pulmonary edema. Historians other than the Patient: EMS: [facility]. Counseling: I had a detailed discussion with the patient and/or guardian regarding the historical points, exam findings, and any diagnostic results supporting the discharge/admit diagnosis, lab results, radiology results, the need for further work-up and treatment in the hospital. ED course: On reevaluation patient symptoms improved after placement on BiPAP. Discussed case with hospitalist team and patient will be admitted to ICU. Patient updated on plan for admission. All questions were answered. 10/11 08:36 Order name: Basic Metabolic Panel; Complete Time: 10:00 ms3 10/11 08:36 Order name: CBC with Diff; Complete Time: 09:18 ms3 10/11 08:36 Order name: LFT's; Complete Time: 10:00 ms3 10/11 08:36 Order name: Magnesium; Complete Time: 10:00 ms3 10/11 08:36 Order name: NT PRO-BNP; Complete Time: 10:00 ms3 10/11 08:36 Order name: PT-INR; Complete Time: 09:18 ms3 10/11 08:36 Order name: Troponin HS; Complete Time: 10:00 ms3 10/11 08:55 Order name: ABG; Complete Time: 09:18 ms3 10/11 12:10 Order name: Magnesium; Complete Time: 08:02 EDMS 10/11 12:11 Order name: Phosphorus; Complete Time: 08:02 EDMS 10/11 12:11 Order name: T4 Free; Complete Time: 08:02 EDMS 10/11 12:11 Order name: Thyroid Stimulating Hormone; Complete Time: 08:02 EDMS 10/11 12:11 Order name: Basic Metabolic Panel EDMS 10/11 12:11 Order name: Basic Metabolic Panel; Complete Time: 08:02 EDMS 10/11 12:11 Order name: CBC with Automated Diff EDMS 10/11 12:11 Order name: CBC with Automated Diff; Complete Time: 08:02 EDMS 10/11 12:11 Order name: Troponin High Sensitivity EDMS 10/11 12:11 Order name: Troponin High Sensitivity; Complete Time: 08:02 EDMS 10/11 12:11 Order name: Troponin High Sensitivity EDMS 10/11 12:16 Order name: Hemoglobin A1c; Complete Time: 08:02 EDMS 10/11 12:16 Order name: Lipid Profile; Complete Time: 08:02 EDMS 10/11 20:58 Order name: Glucose, Ancillary Testing; Complete Time: 08:02 EDMS 10/12 12:47 Order name: Glucose, Ancillary Testing EDMS 10/11 08:36 Order name: XRAY Chest (1 view); Complete Time: 09:18 ms3 10/11 12:16 Order name: Echo with Doppler EDMS 10/11 08:36 Order name: Cardiac monitoring; Complete Time: 08:57 ms3 10/11 08:36 Order name: EKG - Nurse/Tech; Complete Time: 08:57 ms3 10/11 08:36 Order name: IV Saline Lock; Complete Time: 08:57 ms3 10/11 08:36 Order name: Labs collected and sent; Complete Time: 08:57 ms3 10/11 08:36 Order name: O2 Per Protocol; Complete Time: 08:57 ms3 10/11 08:36 Order name: O2 Sat Monitoring; Complete Time: 08:57 ms3 EC:07 Rate is 103 beats/min. Rhythm is regular. Left axis deviation noted. IA interval is ms3 normal. QRS interval is normal. Clinical impression: NSR w/ Non-specific ST/T Changes. Interpreted by me. Reviewed by me. Administered Medications: 10:56 Drug: Furosemide IVP 80 mg IVP once; give over 2 minutes {Note: gave 40 mg initially ph d/t BP 112/59, will give additional 40 mg if BP remains stable, ERP aware.} Route: IVP; Site: right antecubital; 11:30 Follow up: Response: No adverse reaction ph 11:22 Not Given (Hemodynamic Parameters): Nitro Drip - ([id number] mg, q3v007 ml) 5 ph mcg/min IV at 5 mcg/min See Administration Instructions; Recommended max rate 400 mcg/min; Titrate 5 to 20 mcg/min as often as every 5 minutes to achieve goal; Goal parameter SBP less than 160 bpm; Use low-sorbing IV tubing. Disposition: 10:37 Critical Care:. ms3 Disposition Summary: 10/11/24 10:27 Hospitalization Ordered Notes: Hospitalization Status: Inpatient Admission ms3 Provider: Sherrie Awan ms3 Condition: Stable ms3 Problem: new ms3 Symptoms: are unchanged ms3 Bed/Room Type: Standard ms3 Location: Telemetry/MedSurg (Inpatient)(10/12/24 13:39) bc6 Room Assignment: 209(10/12/24 13:39) bc6 Diagnosis - Heart failure, unspecified ms3 - Respiratory failure, unspecified with hypoxia ms3 - Acute pulmonary edema ms3 - Essential (primary) hypertension ms3 Forms: - Medication Reconciliation Form ms3 - SBAR form ms3 - Leadership Thank You Letter ms3 Critical care time excluding procedures: 10:37 Critical care time: Bedside Care: 40 minutes, Consultation: 5 minutes. Total time: 45 ms3 minutes Signatures: Dispatcher [employer] EDMS Cheri Blake bd Mary Ann Karimi, RN RN ph Landaverde, Bryan, DO DO ms3 Norma Barrera bc6 Paul Robison, PROPERTY INSURANCE INSPECTOR-C PROPERTY INSURANCE INSPECTOR-Cdr5 Corrections: (The following items were deleted from the chart) 08:37 08:37 Chest Single View+RAD.RAD.BRZ ordered. EDMS EDMS 08:56 08:56 Arterial Blood Gas+RC.LAB.BRZ ordered. EDMS EDMS 13:53 10:27 Intensive Care Unit ms3 bd 13:53 10:27 ms3 bd 10/12 13:39 10/11 13:53 BR ER HOLD bd bc6 10/12 13:39 10/11 13:53 ERHOLD- bd 6
--- NOTE | 2024-10-11 10:28 | ER ---
Nurse's Notes [facility] Name: Issac Peace Age: 54 yrs Sex: Male : 1970 Arrival Date: 10/11/2024 Time: 08:30 Bed 25 Private MD: Diagnosis: Heart failure, unspecified;Respiratory failure, unspecified with hypoxia;Acute pulmonary edema;Essential (primary) hypertension Presentation: 10/11 08:35 Chief complaint: EMS states: Sudden onset of SOB at 0500 this morning, room air Spo2 ph 80%, placed on c-pap and improved to 90%, upon arrival pt appears distressed w/ rapid and labored respirations, BP elevated 193/106. Coronavirus screen: Vaccine status: Patient reports being unvaccinated. Ebola Screen: No symptoms or risks identified at this time. Initial Sepsis Screen: Does the patient meet any 2 criteria? No. Patient's initial sepsis screen is negative. Does the patient have a suspected source of infection? No. Patient's initial sepsis screen is negative. Risk Assessment: Do you want to hurt yourself or someone else? Patient reports no desire to harm self or others. Onset of symptoms was October 11, 2024. 08:35 Method Of Arrival: EMS: [facility] ph 08:35 Acuity: HILARY 1 ph Triage Assessment: 08:40 General: Appears distressed, uncomfortable, Behavior is cooperative, anxious. Pain: ph Denies pain. Neuro: Level of Consciousness is awake, alert, obeys commands, Oriented to person, place, time, situation. Cardiovascular: Rhythm is sinus tachycardia. Respiratory: Reports shortness of breath at rest cough that is labored breathing Airway is patent Respiratory effort is labored, Respiratory pattern is tachypnea Breath sounds are coarse bilaterally. Onset: The symptoms/episode began/occurred suddenly, the patient has severe shortness of breath. GI: Abdomen is round. Derm: Skin is pink, warm \T\ dry. Historical: - Allergies: 08:38 No Known Allergies; ph - PMHx: 08:38 Hypertensive disorder; ph - Immunization history:: Adult Immunizations unknown. - Infectious Disease History:: Denies. - Social history:: Smoking status: Patient denies any tobacco usage or history of. Screenin:58 [facility] ED Fall Risk Assessment (Adult) History of falling in the last 3 months, ph including since admission No falls in past 3 months (0 pts) Confusion or Disorientation No (0 pts) Intoxicated or Sedated No (0 pts) Impaired Gait No (0 pts) Mobility Assist Device Used No (0 pt) Altered Elimination No (0 pt) Score/Fall Risk Level 0 - 2 = Low Risk Oriented to surroundings, Maintained a safe environment, Provided non-skid footwear, Hourly rounding (assess needs \T\ fall precautionary measures) done. Abuse screen: Denies threats or abuse. Denies injuries from another. Nutritional screening: No deficits noted. Tuberculosis screening: No symptoms or risk factors identified. Assessment: 09:08 Reassessment: Work of breathing and VS improving after placed on bi-pap. General: SEE TRIAGE ASSESSMENT. Cardiovascular: Rhythm is sinus rhythm. 10:00 Reassessment: Patient appears in no apparent distress at this time. No changes from previously documented assessment. 10:46 Reassessment: Patient appears in no apparent distress at this time. Patient and/or family updated on plan of care and expected duration. Pain level reassessed. Pt resting comfortably, VS improved, remains on bi-pap. Vital Signs: 08:35 BP 193 / 106; Pulse 105; Resp 40; Temp 97.6(A); Pulse Ox 99% on BiPAP; Weight 114.76 kg;ph 09:07 BP 164 / 93; Pulse 96; Resp 32; Pulse Ox 98% on 100 lpm BiPAP; ph 09:30 BP 142 / 79; Pulse 92; Resp 26; Pulse Ox 97% on 100 lpm BiPAP; ph 10:00 BP 121 / 69; Pulse 85; Resp 26; Pulse Ox 97% on 100 lpm BiPAP; ph 10:30 BP 125 / 74; Pulse 76; Resp 22; Pulse Ox 98% on 100 lpm BiPAP; ph 10:49 BP 112 / 59; Pulse 74; Resp 20; Pulse Ox 100% on 100 lpm BiPAP; ph 11:30 BP 105 / 65; Pulse 75; Resp 22; Pulse Ox 100% on BiPAP; ph 12:30 BP 96 / 62; Pulse 66; Resp 18; Pulse Ox 94% on BiPAP; ph 12:53 BP 96 / 62; Pulse 64; Resp 20; Pulse Ox 94% on 100 lpm BiPAP; ph 15:07 BP 113 / 75; Pulse 73; Resp 18; Pulse Ox 98% on 80 lpm BiPAP; ph 12:30 PT ASLEEP ph 12:53 pt asleep ph Vitals: 09:07 Cardiac Rhythm Assessment Sinus rhythm. ph ED Course: 08:31 Patient arrived in ED. bd 08:34 Bryan Landaverde DO is Attending Physician. ms3 08:34 Mary Ann Karimi, RN is Primary Nurse. ph 08:38 Triage completed. ph 08:38 Arm band placed on Patient placed in an exam room, on a stretcher, on oxygen, on ph monitoring tech, on pulse oximetry. 08:50 Initial lab(s) drawn, by me, sent to lab. EKG done, by ED staff, reviewed by Bryan Landaverde DO. Inserted saline lock: 20 gauge in right antecubital area, using aseptic technique. Blood collected. Flushed with 10 mL NS. Maintain EMS IV. Dressing intact. Site clean \T\ dry. Gauge \T\ site: 20 LAC. 08:57 Basic Metabolic Panel Sent. ph 08:57 CBC with Diff Sent. ph 08:57 LFT's Sent. ph 08:57 Magnesium Sent. ph 08:57 NT PRO-BNP Sent. ph 08:57 PT-INR Sent. ph 08:57 Troponin HS Sent. ph 09:05 Patient has correct armband on for positive identification. Bed in low position. Call ph light in reach. Side rails up X2. monitoring and evaluation advisor on. Pulse ox on. NIBP on. Noise minimized. Warm blanket given. Pillow given. Verbal reassurance given. 09:06 XRAY Chest (1 view) In Process Unspecified. EDMS 10:27 Sherrie Awan MD is Hospitalizing Provider. ms3 10:49 No provider procedures requiring assistance completed. Patient admitted, IV remains in ph place. Administered Medications: 10:56 Drug: Furosemide IVP 80 mg IVP once; give over 2 minutes {Note: gave 40 mg initially ph d/t BP 112/59, will give additional 40 mg if BP remains stable, ERP aware.} Route: IVP; Site: right antecubital; 11:30 Follow up: Response: No adverse reaction ph 11:22 Not Given (Hemodynamic Parameters): Nitro Drip - ([id number] mg, [id number] ml) 5 ph mcg/min IV at 5 mcg/min See Administration Instructions; Recommended max rate 400 mcg/min; Titrate 5 to 20 mcg/min as often as every 5 minutes to achieve goal; Goal parameter SBP less than 160 bpm; Use low-sorbing IV tubing. Medication: 09:04 VIS not applicable for this client. ph Outcome: 10:27 Decision to Hospitalize by Provider. ms3 12:30 Admitted to ER Hold. Please see [facility] for further documentation. ph 12:30 Condition: stable 12:30 Instructed on the need for transfer, 10/12 15:30 Patient left the ED. bc6 Signatures: Dispatcher [employer] EDMS Cheri Blake Patricia, RN RN ph Bryan Landaverde DO DO ms3 Norma Barrera bc6
[2024-10-11] MEDS ORDERED: FUROSEMIDE 40 MG/4 ML VIAL ONE ×2 (10:42→19:38)
[2024-10-11] MEDS ORDERED: HYDROCODONE/APAP 5/325 MG TAB PO PRN (11:59)
[2024-10-11] MEDS ORDERED: ACETAMINOPHEN 325 MG TABLET PO PRN (11:59)
[2024-10-11] MEDS ORDERED: ONDANSETRON 4 MG/2 ML VIAL IV PRN (12:07)
[2024-10-11] MEDS: INSULIN REGULAR (HUMAN) 100 UNIT/ML SQ SCH (12:10)
[2024-10-11] MEDS ORDERED: D10W 125 ML IV PRN (12:10)
[2024-10-11] MEDS ORDERED: GLUCAGON 1 MG/VIAL IM PRN (12:10)
--- NOTE | 2024-10-11 12:18 | P.HP ---
Certification for Inpatient Patient admitted to: Inpatient With expected LOS: >2 Midnights Patient will require the following post-hospital care: None Practitioner: I am a practitioner with admitting privileges, knowledge of patient current condition, hospital course, and medical plan of care. Services: Services provided to patient in accordance with Admission requirements found in Title 42 Section 412.3 of the Code of Federal Regulations <Shanita Ceballos - Last Filed: 10/11/24 21:42> Patient History Date of Service: 10/11/24 Reason for admission: Shortness of breath History of Present Illness: Patient is a 54-year-old male with a past medical history significant for CHF, hypertension who presents with complaint of shortness of breath onset this morning. Patient reported associated signs and symptoms of cough and orthopnea. Patient denies any other signs or symptoms. Symptoms are aggravated or relieved by nothing. Patient decided to present to the hospital due to worsening symptoms. Of note, patient reported that he ran out of his home medications. - Past Medical/Surgical History -: Hypertension -: CHF Past Surgical History: Reviewed- Non-Contributory - Family History Family History: Reviewed- Non-Contributory - Social History Smoking Status: Never smoker Alcohol use: No CD- Drugs: No Caffeine use: No Place of Residence: Home <Shanita Ceballos - Last Filed: 10/11/24 21:42> Date of Service: 10/12/24 <LvSherrie - Last Filed: 10/12/24 06:44> Allergies No Known Allergies Allergy (Verified 10/20/22 09:54) Home Medications: Furosemide [Lasix] 20 mg PO DAILY 30 Days #30 tab 08/09/22 carvediloL [Coreg*] 12.5 mg PO BIDWM 30 Days #60 tab 08/09/22 lisinopriL [Zestril] 10 mg PO BID 30 Days #60 tab 08/09/22 Review of Systems General: Unremarkable Respiratory: Cough, Shortness of Breath, Other (Orthopnea) Cardiovascular: Unremarkable Gastrointestinal: Unremarkable Genitourinary: Unremarkable Musculoskeletal: Unremarkable Integumentary: Unremarkable Neurological: Unremarkable Lymphatics: Unremarkable <Shanita Ceballos - Last Filed: 10/11/24 21:42> Physical Examination - Vital Signs Pulse: 101 Pulse Ox (%): 98 - Physical Exam General: Alert, In no apparent distress, Oriented x3, Cooperative HEENT: Atraumatic, PERRLA, Mucous membr. moist/pink, EOMI, Sclerae nonicteric Neck: Supple, 2+ carotid pulse no bruit, No LAD, Without JVD or thyroid abnormality Respiratory: Normal air movement, Diminished Cardiovascular: No edema, Regular rate/rhythm, Normal S1 S2 Capillary refill: <2 Seconds Gastrointestinal: Normal bowel sounds, Non-distended, No tenderness Musculoskeletal: No clubbing, No tenderness Integumentary: No rashes, No significant lesion Neurological: Normal speech, Normal tone, Normal affect Lymphatics: No axilla or inguinal lymphadenopathy - Studies Laboratory Data (last 24 hrs) 10/11/24 10/11/24 10/11/24 08:50 08:50 08:50 WBC 9.00 Hgb 14.6 Hct 44.2 Plt Count 158 PT 12.5 INR 1.11 Sodium 135 L Potassium 4.8 BUN 10 Creatinine 1.06 Glucose 290 H Magnesium 1.9 Total Bilirubin 0.9 AST 101 H ALT 173 H Alkaline Phosphatase 108 <Shanita Ceballos - Last Filed: 10/11/24 21:42> - Studies Laboratory Data (last 24 hrs) 10/11/24 10/11/24 10/11/24 08:50 08:50 08:50 WBC 9.00 Hgb 14.6 Hct 44.2 Plt Count 158 PT 12.5 INR 1.11 Sodium 135 L Potassium 4.8 BUN 10 Creatinine 1.06 Glucose 290 H Magnesium 1.9 Total Bilirubin 0.9 AST 101 H ALT 173 H Alkaline Phosphatase 108 <Sherrie Awan - Last Filed: 10/12/24 06:44> Assessment and Plan - Plan Acute on chronic systolic or diastolic CHF exacerbation. --Patient placed on diuresis with Lasix. --Daily weight and strict I/O. --Echocardiogram pending to assess LV\valvular function and wall motion. --Continue supportive care. Acute respiratory failure secondary to CHF exacerbation. --Continue current treatment regimen. Hypertension. --Poorly controlled. --Continue home medications --Labetalol as needed for SBP greater than 160 mmHg. Hypocalcemia --Replete as needed. Hyperglycemia --BS monitoring with sliding scale insulin --Hemoglobin A1c pending Elevated LFTs. --Unclear etiology. --Continue supportive care. CKD 2 --Stable. --Will continue to monitor renal functions. DVT prophylaxis with Lovenox subQ Discharge Plan: Home - Advance Directives Does patient have a Living Will: No Does patient have a Durable POA for Healthcare: No - Code Status/Comfort Care Code Status Assessed: Yes Physician Review: Patient Assessed, Agree with Above Assessment and Plan Critical Care: No <Shanita Ceballos - Last Filed: 10/11/24 21:42> Physician Review: Patient Assessed, Agree with Above Assessment and Plan <Sherrie Awan - Last Filed: 10/12/24 06:44>
[2024-10-11] MEDS: ENOXAPARIN 40 MG/0.4 ML SQ SCH (17:00)
[2024-10-11] MEDS: FUROSEMIDE 40 MG/4 ML VIAL IV SCH (17:00)
[2024-10-11] MEDS ORDERED: ENOXAPARIN 40 MG/0.4 ML SQ ONE (19:39)
[2024-10-11] MEDS ORDERED: LABETALOL 20 MG/4ML SYRINGE IV PRN (21:26)
[2024-10-12 00:57] LABS: HDL Cholesterol 39.0 mg/dL (40-60); LDL Cholesterol, Calculated 72.0 mg/dL (<130); LDL Cholesterol,Calc NonReport 72.0; Magnesium 1.8 mg/dL (1.6-2.4); Thyroid Stimulating Hormone 0.377 uIU/mL (0.358-3.740); Troponin High Sensitivity 14.2 pg/mL (<58.9)
[2024-10-12 05:31] LABS: Absolute Lymphocytes (CBC) 1.3 K/uL (0.7-4.9); Hematocrit 38.1 % (39.6-49.0); Hemoglobin 12.9 g/dL (13.6-17.9); MCH 28.5 pg (27.0-35.0); MCHC 33.9 g/dL (32.0-36.0); MCV 84.3 fL (80-100); MPV 10.9 fL (7.6-11.3); Nucleated RBC Absolute Count 0.0 (0-0); Nucleated Red Blood Cells % 0.1 % (0-0); RBC Red Blood Cell Count 4.52 M/uL (4.33-5.43); White Blood Count 5.70 thou/uL (4.3-10.9)
[2024-10-12 05:47] LABS: Anion Gap 6.4 mEq/L (5.0-15.0); BUN Blood Urea Nitrogen 15.0 mg/dL (7-18); Glucose Level 152.0 mg/dL (74-106); Potassium 3.4 mEq/L (3.5-5.1)
[2024-10-12] MEDS: POTASSIUM CL SA 10 MEQ TAB PO ONE (08:00)
[2024-10-12] MEDS ORDERED: FUROSEMIDE 40 MG/4 ML VIAL ONE (08:28)
[2024-10-12] MEDS ORDERED: POTASSIUM CL SA 10 MEQ TAB PO ONE (08:28)
--- NOTE | 2024-10-12 08:44 | ECHO ---
HEIGHT: 5 ft 10 in WEIGHT: 257 lb 15.054 oz DATE OF STUDY: 10/11/[address]: Shanita Ceballos 2-DIMENSIONAL: YES M.MODE: YES DOPPLER: YES COLOR FLOW: YES TDS: NO PORTABLE: YES DEFINITY: NO BUBBLE STUDY: NO DIAGNOSIS: CONGESTIVE HEART FAILURE CARDIAC HISTORY: CATHERIZATION: SURGERY: PROSTHETIC VALVE: PACEMAKER: MEASUREMENTS (cm) DIASTOLIC (NORMALS) SYSTOLIC (NORMALS) IVSd 1.1 (0.6-1.2) LA Diam 3.6 (1.9-4.0) LVEF 25-30% LVIDd 5.5 (3.5-5.7) LVIDs 4.5 (2.0-3.5) %FS 19% LVPWd 1.3 (0.6-1.2) Ao Diam 3.1 (2.0-3.7) 2 DIMENSIONAL ASSESSMENT: RIGHT ATRIUM: NORMAL LEFT ATRIUM: NORMAL RIGHT VENTRICLE: NORMAL LEFT VENTRICLE: MILDLY DILATED TRICUSPID VALVE: MILD TRICUSPID REGURGITATION MITRAL VALVE: MILD MITRAL REGURGITATION PULMONIC VALVE: NORMAL AORTIC VALVE: NORMAL PERICARDIAL EFFUSION: NONE AORTIC ROOT: NORMAL LEFT VENTRICULAR WALL MOTION: SEVERE GLOBAL HYPOKINESIS. DOPPLER/COLOR FLOW: GRADE III DIASTOLIC DYSFUNCTION. COMMENTS: 1. SEVERELY REDUCED LEFT VENTRICULAR SYSTOLIC FUNCTION, EJECTION FRACTION 25-30%, SEVERE GLOBAL HYPOKINESIS. 2. GRADE III DIASTOLIC DYSFUNCTION. 3. ELEVATED FILLING PRESSURE (RIGHT ATRIAL PRESSURE 15-20mmHg). TECHNOLOGIST: SUDARSHAN RODRIGUES
--- NOTE | 2024-10-12 11:13 | P.PN ---
Date of Service: 10/13/19 Subjective: Seen resting in bed. Feels slightly better than yesterday. We had a long discussion on his lifestyle changes as well as dietary changes. He has been a smoker for 30+ years and stopped about 5 years ago. Will trial breathing treatments. He denies fevers and chills Review of Systems General: Unremarkable Respiratory: Cough, Shortness of Breath, Other (Orthopnea) Cardiovascular: Unremarkable Gastrointestinal: Unremarkable Genitourinary: Unremarkable Musculoskeletal: Unremarkable Integumentary: Unremarkable Neurological: Unremarkable Lymphatics: Unremarkable Physical Examination - Vital Signs Pulse: 101 Pulse Ox (%): 98 - Physical Exam General: Alert, In no apparent distress, Oriented x3, Cooperative HEENT: Atraumatic, PERRLA, Mucous membr. moist/pink, EOMI, Sclerae nonicteric Neck: Supple, 2+ carotid pulse no bruit, No LAD, Without JVD or thyroid abnormality Respiratory: Normal air movement, crackles at base Cardiovascular: No edema, Regular rate/rhythm, Normal S1 S2 Capillary refill: <2 Seconds Gastrointestinal: Normal bowel sounds, Non-distended, No tenderness Musculoskeletal: No clubbing, No tenderness Integumentary: No rashes, No significant lesion Neurological: Normal speech, Normal tone, Normal affect Lymphatics: No axilla or inguinal lymphadenopathy - Studies Laboratory Data (last 24 hrs) 10/11/24 10/11/24 10/11/24 08:50 08:50 08:50 WBC 9.00 Hgb 14.6 Hct 44.2 Plt Count 158 PT 12.5 INR 1.11 Sodium 135 L Potassium 4.8 BUN 10 Creatinine 1.06 Glucose 290 H Magnesium 1.9 Total Bilirubin 0.9 AST 101 H ALT 173 H Alkaline Phosphatase 108 - Studies Laboratory Data (last 24 hrs) 10/11/24 10/11/24 10/11/24 08:50 08:50 08:50 WBC 9.00 Hgb 14.6 Hct 44.2 Plt Count 158 PT 12.5 INR 1.11 Sodium 135 L Potassium 4.8 BUN 10 Creatinine 1.06 Glucose 290 H Magnesium 1.9 Total Bilirubin 0.9 AST 101 H ALT 173 H Alkaline Phosphatase 108 Assessment and Plan - Plan Acute on chronic systolic or diastolic CHF exacerbation. --Add guideline directed medical therapy, continue Coreg, lisinopril --Continue Lasix IV 40 twice daily will switch to p.o. Lasix 40 mg daily on discharge --Daily weight and strict I/O. --Echocardiogram with severely reduced systolic function 25 to 30%. Grade 2 diastolic --Appreciate cardiology recommendations Acute respiratory failure secondary to CHF exacerbation. --On 3 L nasal cannula --Continue current treatment regimen. --Wean O2 as able Hypertension. --Continue Coreg 12.5 mg twice daily --Continue home lisinopril 10 mg daily --Labetalol as needed for SBP greater than 160 mmHg. Hypokalemia --Replete potassium Hyperglycemia --Likely benefit from SGLT2 inhibitor like Jardiance or Farxiga --BS monitoring with sliding scale insulin --Hemoglobin A1c pending Elevated LFTs. --Unclear etiology. --Continue supportive care. CKD 2 --Stable. --Will continue to monitor renal functions. Morbid obesity - Consider GLP-1 agonist DVT prophylaxis with Lovenox subQ Discharge Plan: Home - Advance Directives Does patient have a Living Will: No Does patient have a Durable POA for Healthcare: No - Code Status/Comfort Care Code Status Assessed: Yes, full code
[2024-10-12] MEDS ORDERED: ALBUTEROL 2.5 MG/3 ML NEB SOL ONE (12:21)
[2024-10-12] MEDS: ALBUTEROL 2.5 MG/3 ML NEB SOL NEB SCH (12:31)
--- NOTE | 2024-10-12 12:44 | P.CNS ---
Date of Consult: 10/12/24 Chief Complaint: Shortness of breath History of Present Illness: Patient with PMH of non ischemic CM, presented with worsening BLEVINS and SOB, denies chest pain, no palpitations, no syncope. Allergies No Known Allergies Allergy (Verified 10/20/22 09:54) Home medications list reviewed: Yes Home Medications: Furosemide [Lasix] 20 mg PO DAILY 30 Days #30 tab 08/09/22 carvediloL [Coreg*] 12.5 mg PO BIDWM 30 Days #60 tab 08/09/22 lisinopriL [Zestril] 10 mg PO BID 30 Days #60 tab 08/09/22 - Past Medical/Surgical History -: Hypertension -: CHF - Social History Alcohol use: No CD- Drugs: No Caffeine use: No Place of Residence: Home Review of Systems 10-point ROS is otherwise unremarkable Physical Examination Temp Pulse Resp BP Pulse Ox 97.8 F 70 20 114/72 99 10/12/24 12:00 10/12/24 12:00 10/12/24 12:00 10/12/24 12:00 10/12/24 12:00 General: Alert, In no apparent distress HEENT: Atraumatic, PERRLA, Mucous membr. moist/pink, EOMI, Sclerae nonicteric Neck: Supple, 2+ carotid pulse no bruit, No LAD, Without JVD or thyroid abnormality Respiratory: Normal air movement, Crackles/rales Cardiovascular: Regular rate/rhythm, Normal S1 S2 Gastrointestinal: Normal bowel sounds, No tenderness Musculoskeletal: No tenderness Integumentary: No rashes Neurological: Normal gait, Normal speech, Normal tone, Normal affect Lymphatics: No axilla or inguinal lymphadenopathy - Problems (1) Acute on chronic combined systolic (congestive) and diastolic (congestive) heart failure Current Visit: Yes Status: Acute Plan: continue lasix 40 mg IV BID, May switch to lasix 40 mg po daily on discharge continue coreg 12.5 mg po BID Continue Lisinopril 10 mg daily monitor input and output and electrolytes (2) HTN (hypertension) Current Visit: Yes Status: Acute Plan: continue above medications
[2024-10-12 20:24] VITALS: O2SAT 97
[2024-10-13 12:02] VITALS: TEMP 98.1
[2024-10-13 12:34] LABS: Anion Gap 10.7 mEq/L (5.0-15.0); BUN Blood Urea Nitrogen 15.0 mg/dL (7-18); Glucose Level 152.0 mg/dL (74-106); Potassium 3.7 mEq/L (3.5-5.1)
--- NOTE | 2024-10-13 15:03 | P.DS ---
Admission Date: 10/11/24 Discharge Date: 10/13/24 Disposition: ROUTINE DISCHARGE Discharge Condition: FAIR Reason for Admission: Shortness of breath Brief History of Present Illness: Patient is a 54-year-old male with a past medical history significant for CHF, hypertension presented with complaint of shortness of breath. Patient reported cough and orthopnea. He denied any chest pain. Patient was evaluated in the emergency department, troponin negative, chest x-ray demonstrated pulmonary vascular congestion. Patient was hospitalized for further management of CHF exacerbation. Hospital Course: Diagnosis: Acute on chronic systolic or diastolic CHF exacerbation. Acute respiratory failure secondary to CHF exacerbation. Hypertension. Hypokalemia Hyperglycemia Elevated LFTs. CKD 2 Morbid obesity Patient admitted to the medical floor and started on IV Lasix. Of note patient had an echocardiogram done which showed an EF of 25 to 30%. He was seen and evaluated by cardiology who assisted with management. Patient's shortness of breath resolved with IV Lasix. His other medications including Coreg was continued during the hospital stay. Electrolyte abnormalities including hypokalemia was corrected. Patient currently is asymptomatic, stable on room air with good oxygen saturation. He is stable for discharge. Patient is discharged with Lasix 40 mg daily which is an increase from his home dose of 20 mg daily as recommended by cardiology. Vital Signs/Physical Exam: Temp Pulse Resp BP Pulse Ox 98.1 F 63 16 135/78 95 10/13/24 12:00 10/13/24 12:00 10/13/24 12:00 10/13/24 12:00 10/13/24 12:00 General: Alert, In no apparent distress, Oriented x3 HEENT: Mucous membr. moist/pink Neck: JVD not distended Respiratory: Clear to auscultation bilaterally, Normal air movement Cardiovascular: No edema, Regular rate/rhythm, Normal S1 S2 Gastrointestinal: Soft and benign, Non-distended Musculoskeletal: No swelling Integumentary: No rashes, No cyanosis Neurological: Normal strength at 5/5 x4 extr Lymphatics: No axilla or inguinal lymphadenopathy Laboratory Data at Discharge: WBC 5.70 thou/uL (4.3-10.9) 10/12/24 05:08 Hgb 12.9 g/dL (13.6-17.9) L D 10/12/24 05:08 Hct 38.1 % (39.6-49.0) L 10/12/24 05:08 Plt Count 133 thou/uL (152-406) L 10/12/24 05:08 PT 12.5 SECONDS (10-13.0) 10/11/24 08:50 INR 1.11 10/11/24 08:50 Sodium 138 mEq/L (136-145) 10/13/24 11:40 Potassium 3.7 mEq/L (3.5-5.1) 10/13/24 11:40 BUN 15 mg/dL (7-18) 10/13/24 11:40 Creatinine 0.93 mg/dL (0.70-1.30) 10/13/24 11:40 Glucose 152 mg/dL (74-106) H 10/13/24 11:40 Phosphorus 2.1 mg/dL (2.5-4.9) L 10/12/24 00:00 Magnesium 1.8 mg/dL (1.6-2.4) 10/12/24 00:00 Total Bilirubin 0.9 mg/dL (0.2-1.0) 10/11/24 08:50 AST 101 U/L (15-37) H 10/11/24 08:50 ALT 173 U/L (16-61) H 10/11/24 08:50 Alkaline Phosphatase 108 U/L (45-117) 10/11/24 08:50 Triglycerides 120 mg/dL (<150) 10/12/24 00:00 Cholesterol 135 mg/dL (<200) 10/12/24 00:00 HDL Cholesterol 39 mg/dL (40-60) L 10/12/24 00:00 Cholesterol/HDL Ratio 3.46 10/12/24 00:00 Home Medications: Losartan Potassium 50 mg PO BID 10/12/24 Furosemide [Lasix] 40 mg PO DAILY #30 tab 10/13/24 carvediloL [Coreg*] 12.5 mg PO BIDWM #60 tab 10/13/24 New Medications: carvediloL [Coreg*] 12.5 mg PO BIDWM #60 tab Furosemide [Lasix] 40 mg PO DAILY #30 tab Diet: AHA Activity: Ad gloria Followup: Tico Craig MD [ACTIVE - CAN ADMIT] - 1-2 Weeks NONE,NONE [Primary Care Provider] - Time spent managing pt's care (in minutes): 38
[2024-10-13 16:15] VITALS: BP 122/76
[2024-10-13 19:07] VITALS: BMI 34.9
== END 2024-10-13 17:45 | disposition home or self-care (01) | DRG 291 ==
LOC: ER 08:30 → ERHOLD 12:00 → 2ND 10-12 15:01
PROVIDERS: ADMIT Family Medicine; ATTEND Internal Medicine
PROC: 4A033R1 Measurement of Arterial Saturation, Peripheral, Percutaneous Approach (ICD-10-PCS; principal; 2024-10-11)
PROC: 5A09457 Assistance with Respiratory Ventilation, 24-96 Consecutive Hours, Continuous Positive Airway Pressure (ICD-10-PCS; 2024-10-11)
DX: I13.0 Hypertensive heart and chronic kidney disease with heart failure and stage 1 through stage 4 chronic kidney disease, or unspecified chronic kidney disease (principal); I50.43 Acute on chronic combined systolic (congestive) and diastolic (congestive) heart failure; J96.01 Acute respiratory failure with hypoxia; N18.2 Chronic kidney disease, stage 2 (mild); E83.51 Hypocalcemia; E87.6 Hypokalemia; I42.8 Other cardiomyopathies; E66.01 Morbid (severe) obesity due to excess calories; R73.9 Hyperglycemia, unspecified; Z68.37 Body mass index [BMI] 37.0-37.9, adult; Z79.02 Long term (current) use of antithrombotics/antiplatelets; Z79.899 Other long term (current) drug therapy
CPT/HCPCS: 36415; 36600; 71045; 80048; 80061; 80076; 82805; 82947; 83036; 83735; 83880; 84100; 84439; 84443; 84484; 85025; 85610; 93005; 93306; 94660; 96374; 99285; J1650; J1815; J1938; J7613